=== PATIENT | female | born 1995 | race Caucasian/White ===

== ENCOUNTER → 2016-05-30 | Outpatient (CLI) | payer OTHER ==
--- NOTE | 2016-05-30 10:29 | XR ---
EXAMINATION TYPE: XR ankle complete RT DATE OF EXAM: 05/30/2016 10:23 AM COMPARISON: NONE HISTORY: Pain x2 weeks TECHNIQUE: 3 view right ankle FINDINGS: Ankle mortise is intact. Soft tissues are normal. No acute displaced fractures are evident. IMPRESSION: 1. Normal three-view right ankle
== END | disposition home or self-care (01) ==
LOC: RADXRMAIN 10:07
PROVIDERS: ATTEND Emergency Medicine
DX: S93.401A Sprain of unspecified ligament of right ankle, initial encounter (principal)

== ENCOUNTER → 2016-08-08 | Outpatient (CLI) | payer OTHER ==
--- NOTE | 2016-08-08 14:52 | XR ---
EXAMINATION TYPE: XR hand complete RT DATE OF EXAM ORDERED: 08/08/2016 2:48 PM HISTORY: S60.221A contusion r hand. COMPARISON: None. FINDINGS: No fracture, dislocation or other acute osseous lesion is seen. IMPRESSION: NORMAL RIGHT HAND.
== END ==
LOC: RADXRMAIN 14:28
PROVIDERS: ATTEND Emergency Medicine
DX: S60.221A Contusion of right hand, initial encounter (principal)

== ENCOUNTER → 2016-08-08 | Outpatient (CLI) | payer SELFPAY | END | disposition home or self-care (01) | LOC: LABWHC1 14:14 | PROVIDERS: ATTEND Emergency Medicine | DX: S60.221A Contusion of right hand, initial encounter (principal); N91.2 Amenorrhea, unspecified | CPT/HCPCS: 81025 ==

== ENCOUNTER → 2016-08-16 | Outpatient (CLI) | payer OTHER ==
--- NOTE | 2016-08-16 13:58 | XR ---
EXAMINATION TYPE: XR wrist complete RT, XR hand complete RT DATE OF EXAM: 08/16/2016 1:53 PM CLINICAL HISTORY: Right wrist and hand pain after injury. TECHNIQUE: Frontal, lateral and oblique images of the right wrist and hand are obtained. Fourth scap hoid view right wrist is acquired. COMPARISON: Right hand x-ray August 08, 2016 FINDINGS: There is no acute fracture/dislocation evident in the right wrist. The joint spaces in th e right wrist appear within normal limits. The overlying soft tissue appears unremarkable. Images of right hand show no acute fracture or dislocation. The joint spaces are preserved. The overl cathy soft tissue is unremarkable. IMPRESSION: There is no acute fracture or dislocation in the right hand or wrist.
== END ==
LOC: RADXRMAIN 13:34
PROVIDERS: ATTEND Emergency Medicine
DX: S60.221A Contusion of right hand, initial encounter (principal)

== ENCOUNTER 2016-10-11 14:59 | Emergency (ER) | payer OTHER ==
[2016-10-11 15:17] VITALS: RESP 18
[2016-10-11] MEDS ORDERED: SODIUM CHLORIDE 0.9% 1,000 ML IV STA ×2 (16:57)
[2016-10-11] MEDS ORDERED: ONDANSETRON 4 MG/2 ML VIAL IVP STA (16:57)
[2016-10-11] MEDS ORDERED: FAMOTIDINE 20 MG/2 ML VIAL IV STA (16:59)
--- NOTE | 2016-10-11 17:04 | ED ---
General Adult HPI - General Chief complaint: Nausea/Vomiting/Diarrhea Stated complaint: Vomiting Time Seen by Provider: 10/11/16 16:47 Source: patient, RN notes reviewed, old records reviewed Mode of arrival: ambulatory Limitations: no limitations - History of Present Illness Initial comments: Chief complaint and history of present illness this is a 21-year-old female with nausea vomiting diarrhea for approximately 36 hours. Her friends habits she can think of having eaten any bad food. Denies any fever. Denies any blood in the vomit or diarrhea. She has not had a period for 6 months but she' s had for negative urine tests for . This be checked by serum - Related Data Home Medications Medication Instructions Recorded Confirmed Multivit-Min/Iron/Folic/Xfl998 1 tab PO DAILY 10/11/16 10/11/16 [Hair, Skin and Nails Tablet] Previous Rx's Medication Instructions Recorded Famotidine [Pepcid] 20 mg PO DAILY #30 tablet 10/11/16 Ondansetron Odt [Zofran Odt] 4 mg PO Q8HR PRN #10 tab 10/11/16 Allergies Allergy/AdvReac Type Severity Reaction Status Date / Time diphenhydramine HCl Allergy Anaphylaxis Verified 10/11/16 17:17 [From Benadryl] ibuprofen [From Motrin] Allergy Anaphylaxis Verified 10/11/16 17:17 ketorolac [From Toradol] Allergy Anaphylaxis Verified 10/11/16 17:17 levetiracetam [From Keppra] Allergy Anaphylaxis Verified 10/11/16 17:17 lithium [[place]] Allergy Anaphylaxis Verified 10/11/16 17:17 naproxen [From Naprosyn] Allergy Anaphylaxis Verified 10/11/16 17:17 NSAIDS (Non-Steroidal Allergy Anaphylaxis Verified 10/11/16 17:17 Anti-Inflamma Review of Systems ROS Statement: Those systems with pertinent positive or pertinent negative responses have been documented in the HPI. review of systems no complaint of any headache or visual acuity changes denies chest pain shortness of breath. She's had a set stomach nausea vomiting for 36 hours. No blood in the vomit or loose stool. All systems were reviewed.Past medical processing significant for low blood sugar, fibromyalgia, seizure disorder for which she's not taking any medications has not had a seizure for over 2 years. Also pulmonary stenosis. Surgeries tonsils and adenoids. Family history mother had cancer of the cervix and possible connective tissue disorder. Father had heart disease. Patient has ALLERGIES to diphenhydramine, ketorolac, levetiracetam, lithium, naproxen, nonsteroidal anti-inflammatories. The patient quit smoking 2 years ago drinks alcohol socially. ROS Other: All systems not noted in ROS Statement are negative. Past Medical History Past Medical History: Fibromyalgia, Seizure Disorder Additional Past Medical History / Comment(s): Pulmonary Stenosis History of Any Multi-Drug Resistant Organisms: None Reported Past Surgical History: Tonsillectomy Past Psychological History: Anxiety, Bipolar, Depression Smoking Status: Former smoker Past Alcohol Use History: Occasional Past Drug Use History: None Reported General Exam - General Exam Comments Initial Comments: General: The patient is awake and alert, in no distress, and does not appear acutely ill. complains of nausea vomiting diarrhea for 36 hours. Vital signs shows temperature 98.4 pulse 104 respiratory rate 18 pulse ox 98% room air blood pressure 131/82 Eye: Pupils are equal, round and reactive to light, extra-ocular movements are intact ; there is normal conjunctiva bilaterally. No signs of icterus. , mouth and throat: There are moist mucous membranes and no oral lesions. Neck: The neck is supple, there is no tenderness , no anterior cervical lymphadenopathy, thyroid not enlarged. Cardiovascular: There is a regular rate and rhythm. loud murmur over the mitral valve area. History of pulmonary stenosis Respiratory: Lungs are clear to auscultation, respirations are non-labored, breath sounds are equal. No wheezes, stridor, rales, or rhonchi. Gastrointestinal: Soft, non-distended, non-tender abdomen without masses or organomegaly noted. There is no rebound or guarding present. No CVA tenderness. Bowel sounds are unremarkable. Back: There is no tenderness to palpation in the midline. Musculoskeletal: Normal ROM, no tenderness, There is no pedal edema. There is no calf tenderness or swelling. Sensation intact. Neurological: no neuro deficits, walking talking balance normal. No evidence of any focal or lateralizing problems. Skin: Skin is warm and dry and no rashes or lesions are noted. Limitations: no limitations Course Vital Signs 10/11/16 10/11/16 10/11/16 15:14 17:23 19:34 Temperature 98.4 F Pulse Rate 104 H 93 94 Respiratory 18 18 18 Rate Blood Pressure 131/82 124/82 131/83 O2 Sat by Pulse 98 98 100 Oximetry Medical Decision Making - Medical Decision Making Medical decision-making. Patient's white count 7.0 hemoglobin 14 hematocrit 43 with a potassium 3.9 BUN 9 creatinine 0.65 GFR greater than 60. Glucose 96. Amylase/ lipase within normal limits,serum test negative. patient continued complaining of mild abdominal discomfort which she received Dilaudid. The patient's x-ray of the abdomen was done reviewed by radiologist his impression is the bowel gas pattern is normal. There is no sign of intestinal obstruction or pneumoperitoneum. Fecal pattern is normal. Lung bases are clear. There are no pathologic calcifications over the kidneys. Impression nonacute abdomen. No change. As read by Dr. Ortega The patient be discharged home with prescription for Pepcid and Zofran. Told to use Tylenol for discomfort. Follow-up with family physician off work tomorrow. - Lab Data Result diagrams: 10/11/16 17:22 10/11/16 17:22 Lab Results 10/11/16 10/11/16 Range/Units 17:22 17:22 WBC 7.0 (3.8-10.6) k/uL RBC 5.44 H (3.80-5.40) m/uL Hgb 14.4 (11.4-16.0) gm/dL Hct 43.5 (34.0-46.0) % MCV 79.9 L (80.0-100.0) fL MCH 26.4 (25.0-35.0) pg MCHC 33.0 (31.0-37.0) g/dL RDW 12.8 (11.5-15.5) % Plt Count 323 (150-450) k/uL Neutrophils % 63 % Lymphocytes % 27 % Monocytes % 5 % Eosinophils % 3 % Basophils % 1 % Neutrophils # 4.4 (1.3-7.7) k/uL Lymphocytes # 1.9 (1.0-4.8) k/uL Monocytes # 0.4 (0-1.0) k/uL Eosinophils # 0.2 (0-0.7) k/uL Basophils # 0.1 (0-0.2) k/uL Sodium 143 (137-145) mmol/L Potassium 3.9 (3.5-5.1) mmol/L Chloride 104 (98-107) mmol/L Carbon Dioxide 27 (22-30) mmol/L Anion Gap 12 mmol/L BUN 9 (7-17) mg/dL Creatinine 0.65 (0.52-1.04) mg/dL Est GFR (MDRD) Af Amer >60 (>60 ml/min/1.73 sqM) Est GFR (MDRD) Non-Af >60 (>60 ml/min/1.73 sqM) Glucose 96 (74-99) mg/dL Calcium 10.0 (8.4-10.2) mg/dL Total Bilirubin 0.7 (0.2-1.3) mg/dL AST 32 (14-36) U/L ALT 51 (9-52) U/L Alkaline Phosphatase 95 (38-126) U/L Total Protein 8.4 H (6.3-8.2) g/dL Albumin 4.8 (3.5-5.0) g/dL Amylase 59 (30-110) U/L Lipase 86 (23-300) U/L HCG, Quant <2.4 mIU/mL Disposition Clinical Impression: Gastroenteritis Disposition: HOME SELF-CARE Condition: Fair Instructions: Acute Nausea and Vomiting (ED), Acute Diarrhea (ED) Additional Instructions: use Pepto-Bismol to control loose stool. Pepcid for stomach irritation Zofran for nausea. Advance her diet. Off work today and follow-up with family physician. Prescriptions: Famotidine [Pepcid] 20 mg PO DAILY #30 tablet Ondansetron Odt [Zofran Odt] 4 mg PO Q8HR PRN #10 tab PRN Reason: nausea vomiting Referrals: Artemio Cook MD [Primary Care Provider] - 1-2 days Time of Disposition: 19:48
[2016-10-11 17:34] LABS: Basophils # (A) 0.1 k/uL (0-0.2); Basophils % (A) 1 %; CH 26.5; CHCM 33.4; Eosinophils # (A) 0.2 k/uL (0-0.7); Eosinophils % (A) 3 %; HCT 43.5 % (34.0-46.0); HGB 14.4 gm/dL (11.4-16.0); Luc # (Auto) 0.14; Luc % (Auto) 2; Lymphocytes # (A) 1.9 k/uL (1.0-4.8); Lymphocytes % (A) 27 %; MCH 26.4 pg (25.0-35.0); MCV 79.9 fL (80.0-100.0); Mean Platelet Volume 6.2; Monocytes # (A) 0.4 k/uL (0-1.0); Monocytes % (A) 5 %; Neutrophils # (A) 4.4 k/uL (1.3-7.7); Neutrophils % (A) 63 %; RBC 5.44 m/uL (3.80-5.40); RDW 12.8 % (11.5-15.5); WBC (Perox) 6.65
[2016-10-11 17:49] LABS: ALT 51 U/L (9-52); AST 32 U/L (14-36); Alkaline Phosphatase 95 U/L (38-126); Amylase 59 U/L (30-110); Anion Gap 12 mmol/L; Blood Urea Nitrogen 9 mg/dL (7-17); Carbon Dioxide 27 mmol/L (22-30); Chloride 104 mmol/L (98-107); Glucose 96 mg/dL (74-99); Non-African American GFR(MDRD) >60 (>60 ml/min/1.73 sqM); Potassium 3.9 mmol/L (3.5-5.1); Sodium 143 mmol/L (137-145); Total Bilirubin 0.7 mg/dL (0.2-1.3); Total Protein 8.4 g/dL (6.3-8.2)
[2016-10-11 18:06] LABS: HCG,Quantitative Serum <2.4 mIU/mL
[2016-10-11] MEDS ORDERED: HYDROmorphone 1 MG/ML 1 ML SYRINGE IVP STA (19:17)
--- NOTE | 2016-10-11 19:32 | XR ---
EXAMINATION TYPE: XR KUB DATE OF EXAM: 10/11/2016 COMPARISON: 03/10/2016 HISTORY: Nausea and vomiting TECHNIQUE: 2 views FINDINGS: The bowel gas pattern is normal. There is no sign of intestinal obstruction or pneumoperito neum. Fecal pattern is normal. Lung bases are clear. There are no pathologic calcifications over the kidneys. IMPRESSION: Nonacute abdomen. No change.
[2016-10-11 20:11] VITALS: BP 137/87; PULSE 81; TEMP 97.8
== END 2016-10-11 20:11 | disposition home or self-care (01) ==
LOC: EC 14:59
DX: K52.9 Noninfective gastroenteritis and colitis, unspecified (principal); Z87.891 Personal history of nicotine dependence; Z79.899 Other long term (current) drug therapy; Z88.6 Allergy status to analgesic agent; Z88.8 Allergy status to other drugs, medicaments and biological substances
CPT/HCPCS: 36415; 80053; 82150; 83690; 85025; 84702; 74000; 99284; 96374; 96375 ×2; 96361 ×2; J2405; J1170

== ENCOUNTER → 2017-06-28 | Outpatient (CLI) | payer OTHER ==
[2017-06-28 11:58] LABS: HGB 13.9 gm/dL (11.4-16.0); MCHC 32.3 g/dL (31.0-37.0); MCV 80.5 fL (80.0-100.0); Mean Platelet Volume 6.3; Platelet Count 348 k/uL (150-450); RBC 5.34 m/uL (3.80-5.40); RDW 12.4 % (11.5-15.5); WBC 7.9 k/uL (3.8-10.6)
[2017-06-28 12:14] LABS: ALT 64 U/L (9-52); AST 42 U/L (14-36); Albumin 4.9 g/dL (3.5-5.0); Alkaline Phosphatase 98 U/L (38-126); Anion Gap 16 mmol/L; Blood Urea Nitrogen 15 mg/dL (7-17); Calcium 10.3 mg/dL (8.4-10.2); Carbon Dioxide 25 mmol/L (22-30); Chloride 104 mmol/L (98-107); Glucose 94 mg/dL (74-99); Potassium 4.2 mmol/L (3.5-5.1); Sodium 145 mmol/L (137-145); Total Bilirubin 0.7 mg/dL (0.2-1.3); Total Protein 8.4 g/dL (6.3-8.2)
[2017-06-28 12:30] LABS: HCG,Quantitative Serum <2.4 mIU/mL; T4, Free (Free Thyroxine) 1.21 ng/dL (0.78-2.19)
[2017-06-28 12:51] LABS: Amorphous Sediment,Urine Rare /hpf; Appearance,Urine Turbid (Clear); Bacteria,Urine Rare /hpf; Bilirubin,Urine Negative (Negative); Blood,Urine Negative (Negative); Color,Urine Yellow; Glucose,Urine (UA) Negative (Negative); Ketones,Urine Negative (Negative); Leukocyte Esterase,Urine Small (Negative); Mucus,Urine Moderate /hpf; Nitrite,Urine Negative (Negative); PH, Urine 5.5 (5.0-8.0); Protein,Urine 1+ (Negative); Specific Gravity,Urine 1.024 (1.001-1.035); Squamous Epithelial Cell,Urine 7 /hpf (0-4); Urobilinogen,Urine <2.0 mg/dL (<2.0); WBC,Urine 23 /hpf (0-5)
[2017-06-28 17:46] LABS: DHEA Sulfate 197.5 ug/dL (26.0-430.0)
[2017-06-28 18:30] LABS: Insulin Level 28.8 mIU/mL (3.0-25.0)
== END | disposition home or self-care (01) ==
LOC: LABWHC1 11:24
PROVIDERS: ATTEND Obstetrics & Gynecology
DX: N91.2 Amenorrhea, unspecified (principal)
CPT/HCPCS: 36415; 80053; 81001; 82627; 82670; 83001; 83002; 83498; 83525; 84146; 84402; 84439; 84443; 84702; 85027

== ENCOUNTER → 2017-07-06 | Outpatient (CLI) | payer OTHER ==
--- NOTE | 2017-07-07 10:59 | US ---
EXAMINATION TYPE: US pelvis complete transvag DATE OF EXAM: 07/06/2017 COMPARISON: 2016 CLINICAL HISTORY: N91.2 Amenorrhea. Large body habitus TECHNIQUE: . Transabdominal sonographic images of the pelvis were acquired. Transvaginal sonographi c images were medically necessary to better assess the following anatomy: uterus, endometrium, ovarie s Date of LMP: 1 year ago EXAM MEASUREMENTS: Uterus: 5.2 x 2.0 x 3.0 cm cm Endometrial Stripe: 0.7 cm Right Ovary: 3.2 x 2.1 x 2.1 cm Left Ovary: 3.1 x 1.9 x 2.4 cm 1. Uterus: Anteverted heterogenous cervical cyst 0.7 x 0.4 x0.5 nabothian cysts likely present. 2. Endometrium: thick , 3. Right Ovary: multiple small cysts , some of these appear to be within the periphery which could suggest Polycystic ovaries 4. Left Ovary: multiple small cysts 5. Bilateral Adnexa: wnl 6. Posterior cul-de-sac: wnl IMPRESSION: 1. Clinical consideration for polycystic ovarian disease is recommended.
== END | disposition home or self-care (01) ==
LOC: RADUSWWP 15:27
PROVIDERS: ATTEND Obstetrics & Gynecology
DX: N91.2 Amenorrhea, unspecified (principal)
CPT/HCPCS: 76830; 76856

== ENCOUNTER 2018-05-20 03:58 | Emergency (ER) | payer OTHER ==
--- NOTE | 2018-05-20 05:01 | XR ---
EXAMINATION TYPE: XR knee complete RT DATE OF EXAM: 05/20/2018 COMPARISON: NONE HISTORY: Knee pain TECHNIQUE: 3 views FINDINGS: I see no fracture nor dislocation. Joint spaces are fairly normal. There is no sign of join t effusion. IMPRESSION: Negative right knee exam.
--- NOTE | 2018-05-20 05:06 | ED ---
Fall HPI - General Chief Complaint: Fall Stated Complaint: Fall/Knee Injury Time Seen by Provider: 05/20/18 04:10 Source: patient Mode of arrival: wheelchair - History of Present Illness Initial Comments: Patient is 23-year-old woman who slipped on a packet that was on the floor and fell striking her knee. This occurred earlier tonight. Patient states that she is now not able to ambulate due to the pain. She denies weakness or numbness of the leg. She denies other injuries in the fall. Complaint: fall Onset/Timin -: hour(s) Fall From: standing When Fall Occurred: just prior to arrival Place Fall Occurred: work Loss of Consciousness: none Prolonged Down Time?: no Severity: severe Quality: sharp Context: tripped/slipped Associated Symptoms: denies - Related Data Home Medications Medication Instructions Recorded Confirmed Multivit-Min/Iron/Folic/Qkc268 1 tab PO DAILY 10/11/16 10/11/16 [Hair, Skin and Nails Tablet] Previous Rx's Medication Instructions Recorded Famotidine [Pepcid] 20 mg PO DAILY #30 tablet 10/11/16 Ondansetron Odt [Zofran Odt] 4 mg PO Q8HR PRN #10 tab 10/11/16 Allergies Allergy/AdvReac Type Severity Reaction Status Date / Time diphenhydramine HCl Allergy Anaphylaxis Verified 05/20/18 04:09 [From Benadryl] ibuprofen [From Motrin] Allergy Anaphylaxis Verified 05/20/18 04:09 ketorolac [From Toradol] Allergy Anaphylaxis Verified 05/20/18 04:09 levetiracetam [From Keppra] Allergy Anaphylaxis Verified 05/20/18 04:09 lithium [[place]] Allergy Anaphylaxis Verified 05/20/18 04:09 naproxen [From Naprosyn] Allergy Anaphylaxis Verified 05/20/18 04:09 NSAIDS (Non-Steroidal Allergy Anaphylaxis Verified 05/20/18 04:09 Anti-Inflamma Review of Systems ROS Statement: Those systems with pertinent positive or pertinent negative responses have been documented in the HPI. ROS Other: All systems not noted in ROS Statement are negative. Cardiovascular: Denies: chest pain, syncope Gastrointestinal: Denies: abdominal pain Musculoskeletal: Denies: back pain Neurological: Denies: headache Past Medical History Past Medical History: Fibromyalgia, Seizure Disorder Additional Past Medical History / Comment(s): Pulmonary Stenosis History of Any Multi-Drug Resistant Organisms: None Reported Past Surgical History: Adenoidectomy, Tonsillectomy Past Psychological History: Anxiety, Bipolar, Depression Smoking Status: Current every day smoker Past Alcohol Use History: Occasional Past Drug Use History: None Reported General Exam Limitations: physical limitation General appearance: alert, in no apparent distress Head exam: Present: atraumatic, normocephalic Eye exam: Present: normal appearance Neck exam: Present: normal inspection, full ROM. Absent: tenderness Respiratory exam: Present: normal lung sounds bilaterally. Absent: respiratory distress, wheezes, rales, rhonchi, stridor Cardiovascular Exam: Present: regular rate, normal rhythm, normal heart sounds Extremities exam: Present: normal capillary refill, other (Patient has marked tenderness to the anterior aspect of the knee. She is not able to tolerate the range of motion exam or ligamentous exam due to pain at the knee. There is no obvious deformity. There is a small amount of soft tissue swelling anteriorly.) . Absent: pedal edema Back exam: Present: normal inspection. Absent: CVA tenderness (R), CVA tenderness (L), paraspinal tenderness, vertebral tenderness Neurological exam: Present: alert. Absent: motor sensory deficit Skin exam: Present: warm, dry, intact, normal color. Absent: rash Course Vital Signs 05/20/18 05/20/18 04:05 06:21 Temperature 98.0 F 98.2 F Pulse Rate 79 82 Respiratory 17 18 Rate Blood Pressure 130/84 118/87 O2 Sat by Pulse 97 100 Oximetry Disposition Clinical Impression: Fall, Contusion, knee Disposition: HOME SELF-CARE Condition: Good Instructions: Knee Pain (ED) Is patient prescribed a controlled substance at d/c from ED?: No Referrals: Artemio Cook MD [Primary Care Provider] - 1-2 days
[2018-05-20 06:22] VITALS: BP 118/87; PULSE 82; RESP 18; TEMP 98.2
== END 2018-05-20 06:22 | disposition home or self-care (01) ==
LOC: EC 03:58
DX: S80.01XA Contusion of right knee, initial encounter (principal); F17.200 Nicotine dependence, unspecified, uncomplicated; Z88.8 Allergy status to other drugs, medicaments and biological substances; Z88.6 Allergy status to analgesic agent; W01.10XA Fall on same level from slipping, tripping and stumbling with subsequent striking against unspecified object, initial encounter; Y92.69 Other specified industrial and construction area as the place of occurrence of the external cause; Y99.0 Civilian activity done for income or pay
CPT/HCPCS: 99283

== ENCOUNTER 2018-09-03 14:19 | Emergency (ER) | payer OTHER ==
[2018-09-03 14:33] VITALS: RESP 18; TEMP 98.2
--- NOTE | 2018-09-03 15:09 | ED ---
General Adult HPI - General Chief complaint: Neuro Symptoms/Deficit Stated complaint: BLE pain Time Seen by Provider: 09/03/18 14:25 Source: patient Mode of arrival: ambulatory Limitations: no limitations - History of Present Illness Initial comments: Patient is a 23-year-old female presenting to the emergency department with a chief complaint of numbness and muscle weakness bilateral lower extremities. Patient reports she is diagnosed with a neuropathy and is treated with gabapentin. Patient states she gets similar episodes but only last up to 30 minutes. She began having numbness and muscle weakness today which has been ongoing for 3 hours. She states that she feels pain on her left leg but not her right. She also complains of left calf pain. She also has mild lower back pain without radiation to the lower extremities and bilateral hip pain. Patient denies any urinary incontinence or saddle paresthesia. - Related Data Home Medications Medication Instructions Recorded Confirmed Gabapentin [Neurontin] 100 mg PO TID 09/03/18 09/03/18 Lacosamide [Vimpat] 100 mg PO BID 09/03/18 09/03/18 Allergies Allergy/AdvReac Type Severity Reaction Status Date / Time diphenhydramine HCl Allergy Anaphylaxis Verified 09/03/18 14:36 [From Benadryl] ibuprofen [From Motrin] Allergy Anaphylaxis Verified 09/03/18 14:36 ketorolac [From Toradol] Allergy Anaphylaxis Verified 09/03/18 14:36 levetiracetam [From Keppra] Allergy Anaphylaxis Verified 09/03/18 14:36 lithium [[place]] Allergy Anaphylaxis Verified 09/03/18 14:36 naproxen [From Naprosyn] Allergy Anaphylaxis Verified 09/03/18 14:36 NSAIDS (Non-Steroidal Allergy Anaphylaxis Verified 09/03/18 14:36 Anti-Inflamma Review of Systems ROS Statement: Those systems with pertinent positive or pertinent negative responses have been documented in the HPI. ROS Other: All systems not noted in ROS Statement are negative. Past Medical History Past Medical History: Fibromyalgia, Seizure Disorder Additional Past Medical History / Comment(s): Pulmonary Stenosis History of Any Multi-Drug Resistant Organisms: None Reported Past Surgical History: Adenoidectomy, Tonsillectomy Past Psychological History: Anxiety, Bipolar, Depression Smoking Status: Never smoker Past Alcohol Use History: Rare Past Drug Use History: None Reported General Exam Limitations: no limitations General appearance: alert, in no apparent distress Head exam: Present: atraumatic Eye exam: Present: normal appearance Respiratory exam: Present: normal lung sounds bilaterally. Absent: respiratory distress, wheezes, rales, rhonchi, stridor Cardiovascular Exam: Present: regular rate. Absent: bradycardia, tachycardia Back exam: Present: tenderness (Mild). Absent: CVA tenderness (R), CVA tenderness (L) Neurological exam: Present: alert, oriented X3, reflexes normal (+ 2 bilateral knees). Absent: normal gait (Able to stand up with heavy assistance for a few seconds) Psychiatric exam: Present: normal affect, normal mood Course Vital Signs 09/03/18 14:25 Temperature 98.2 F Pulse Rate 95 Respiratory 18 Rate Blood Pressure 144/101 O2 Sat by Pulse 99 Oximetry Medical Decision Making - Medical Decision Making Patient is 23-year-old female presenting to the emergency department for bilateral lower extremity muscle weakness and numbness. CMP and CBC were drawn and returned unremarkable. Patient will transferred to [facility] neurology, except an physician Dr. Jay. Case discussed with physician. - Lab Data Result diagrams: 09/03/18 17:03 09/03/18 17:03 Lab Results 09/03/18 09/03/18 Range/Units 17:03 17:03 WBC 10.0 (3.8-10.6) k/uL RBC 5.08 (3.80-5.40) m/uL Hgb 13.5 (11.4-16.0) gm/dL Hct 40.6 (34.0-46.0) % MCV 80.0 (80.0-100.0) fL MCH 26.5 (25.0-35.0) pg MCHC 33.2 (31.0-37.0) g/dL RDW 13.3 (11.5-15.5) % Plt Count 344 (150-450) k/uL Neutrophils % 66 % Lymphocytes % 25 % Monocytes % 4 % Eosinophils % 3 % Basophils % 1 % Neutrophils # 6.6 (1.3-7.7) k/uL Lymphocytes # 2.5 (1.0-4.8) k/uL Monocytes # 0.4 (0-1.0) k/uL Eosinophils # 0.3 (0-0.7) k/uL Basophils # 0.1 (0-0.2) k/uL Sodium 140 (137-145) mmol/L Potassium 4.3 (3.5-5.1) mmol/L Chloride 106 (98-107) mmol/L Carbon Dioxide 23 (22-30) mmol/L Anion Gap 11 mmol/L BUN 9 (7-17) mg/dL Creatinine 0.46 L (0.52-1.04) mg/dL Est GFR (CKD-EPI)AfAm >90 (>60 ml/min/1.73 sqM) Est GFR (CKD-EPI)NonAf >90 (>60 ml/min/1.73 sqM) Glucose 120 H (74-99) mg/dL Calcium 10.2 (8.4-10.2) mg/dL Total Bilirubin 0.4 (0.2-1.3) mg/dL AST 45 H (14-36) U/L ALT 73 H (9-52) U/L Alkaline Phosphatase 86 (38-126) U/L Total Protein 7.9 (6.3-8.2) g/dL Albumin 4.8 (3.5-5.0) g/dL Disposition Clinical Impression: Neuropathy Disposition: OTHER INSTITUTION NOT DEFINED Condition: Stable Referrals: Artemio Cook MD [Primary Care Provider] - 1-2 days Time of Disposition: 17:49 - Out of Hospital Transfer - Req. Specs Out of Hospital Transfer - Requested Specifics: Other Emergency Center ([facility])
[2018-09-03 17:11] LABS: Basophils # (A) 0.1 k/uL (0-0.2); Basophils % (A) 1 %; Eosinophils # (A) 0.3 k/uL (0-0.7); Eosinophils % (A) 3 %; HCT 40.6 % (34.0-46.0); HGB 13.5 gm/dL (11.4-16.0); Lymphocytes # (A) 2.5 k/uL (1.0-4.8); Lymphocytes % (A) 25 %; MCH 26.5 pg (25.0-35.0); MCHC 33.2 g/dL (31.0-37.0); Mean Platelet Volume 6.4; Monocytes # (A) 0.4 k/uL (0-1.0); Monocytes % (A) 4 %; Neutrophils # (A) 6.6 k/uL (1.3-7.7); Neutrophils % (A) 66 %; Platelet Count 344 k/uL (150-450); RBC 5.08 m/uL (3.80-5.40); RDW 13.3 % (11.5-15.5)
[2018-09-03 17:19] LABS: ALT 73 U/L (9-52); AST 45 U/L (14-36); Albumin 4.8 g/dL (3.5-5.0); Alkaline Phosphatase 86 U/L (38-126); Anion Gap 11 mmol/L; Blood Urea Nitrogen 9 mg/dL (7-17); Calcium 10.2 mg/dL (8.4-10.2); Carbon Dioxide 23 mmol/L (22-30); Chloride 106 mmol/L (98-107); Glucose 120 mg/dL (74-99); Potassium 4.3 mmol/L (3.5-5.1); Sodium 140 mmol/L (137-145); Total Bilirubin 0.4 mg/dL (0.2-1.3); Total Protein 7.9 g/dL (6.3-8.2)
[2018-09-03 18:34] VITALS: BP 138/90; PULSE 73
== END 2018-09-03 18:50 | disposition other institution (70) ==
LOC: EC 14:19
DX: G62.9 Polyneuropathy, unspecified (principal); G40.909 Epilepsy, unspecified, not intractable, without status epilepticus; Z79.899 Other long term (current) drug therapy; Z88.8 Allergy status to other drugs, medicaments and biological substances; Z88.5 Allergy status to narcotic agent; Z88.6 Allergy status to analgesic agent
CPT/HCPCS: 36415; 80053; 85025; 99285

== ENCOUNTER → 2018-10-23 | Outpatient (CLI) | payer OTHER ==
--- NOTE | 2018-10-23 22:43 | CONS ---
CONSULTATION REASON FOR CONSULTATION: Consultation note for hypersomnia. This is a 23-year-old female patient coming in for oversleeping. She sleeps an extended number of hours, around 10-12 hours and despite that she feels non refreshed, tired, sleepy and fatigued. This has been going on for a period of a few years and recently this got worse after the patient was given a combination of and Neurontin for seizure disorder. Currently she is off the medication. She is also seeing Dr. Navas for possible MS. Diagnosis has not been finally established yet. She is excessively fatigued and sleepy. She goes to bed somewhere between 8 or 11 p.m. gets up at 8:00 am in the morning. She feels tired and sleepy during the day. She may take a nap around 1:00 pm. 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 and 8:00 am and she works 2 days a week. Her weight has been fluctuating. In general, she has seems to have gained weight. She used to weigh around 310 pounds last year. She is down to 228. Her current [place] score is at 16. No head trauma. No hallucinations. No cataplexy. Although, she has experienced some sleep paralysis in the past. No family history of sleep apnea. No family history of narcolepsy. The patient sleeps in different body positions. She prefers sleeping on her back and stomach. She does not drink alcohol in excess. She has no vivid dreams. She wakes up multiple times in the middle of night somewhere between 6-10 times and she has loud snoring. She is an ex-smoker. No history of substance abuse. No history of depression. PAST MEDICAL HISTORY: 1. Obesity. 2. Possible seizure disorder versus MS. PAST SURGICAL HISTORY: Includes tonsils and adenoid removal. ALLERGIES: TO NAPROSYN, BENADRYL, KEPPRA, MOTRIN AND KEFLEX. SOCIAL HISTORY: The patient is an ex smoker. No history of alcohol. She has smoked marijuana on and off. FAMILY HISTORY: Not known as the patient is adopted. MEDICATIONS: Are none. REVIEW OF SYSTEMS: A 14-point review of system was done. Positive findings are mentioned in history of present illness. No grinding of the teeth. No typical symptoms of RLS although she has some symptoms of neuropathy in lower extremities bilaterally. She wakes up with dry mouth. She denies having any grinding. No sleepwalking. No palpitation. No heartburn. No chest pain. No anxiety. No history of depression. BP is 123/84, pulse 101, respirations 16, temperature 98.1, BMI is 41, weight is 228. Height is 5 feet 2 inches. Neck size 16.5 inches, saturation 94% on room air. GENERAL APPEARANCE: Calm, comfortable. Head is atraumatic, normocephalic. NECK: Supple. No JVD. No goiter or neck masses. Mallampati class IV. LUNGS: Clear to auscultation. HEART: Sounds are regular rate and rhythm. Normal S1, S2. No S3. No murmurs. ABDOMEN: Obese, soft. Organs cannot be palpated. There was no direct and rebound tenderness, rebound or guarding. EXTREMITIES: Trace edema. No cyanosis or clubbing. NEUROLOGIC: She is alert and oriented x3. No focal neurological deficit. PSYCHIATRIC: Negative for anxiety or depression. Skin is negative for any wounds or ulceration. IMPRESSION: 1. Hypersomnia [place] score of 16 under investigation, rule out obstructive sleep apnea. This clinical suspicion is high. Narcolepsy is felt to be less likely. 2. Obesity, BMI of 41. 3. Loud snoring. PLAN: 1. Polysomnogram. Possible MSLT on 2nd day if the polysomnogram comes back negative for sleep apnea. 2. Encourage weight loss. 3. Implement good sleep hygiene measures. 4. We will continue to follow. MMODL / IJN: [id number] /
== END ==
LOC: SLEEP 15:23
PROVIDERS: ATTEND Internal Medicine Critical Care Medicine
DX: G47.10 Hypersomnia, unspecified (principal); E66.9 Obesity, unspecified; Z68.41 Body mass index [BMI] 40.0-44.9, adult
CPT/HCPCS: 99211

== ENCOUNTER → 2019-01-22 | Outpatient (CLI) | payer OTHER ==
--- NOTE | 2019-01-22 16:51 | PN ---
PROGRESS NOTE This is a 24-year-old female patient coming in to discuss results of her sleep study. This 24-year-old obese female patient has a diagnosis of MS and she originally came to me for excessive tiredness and fatigue. The patient has an [place] score of 16. She weighs around 310 pounds and she is currently losing weight. I performed a polysomnogram on this patient. The polysomnography showed mild obstructive sleep apnea. The patient's symptoms of hypersomnia were out of proportion to the severity of her KEVIN. Her AHI was 9.2, and it was worse during REM sleep. The patient showed increased sleep efficiency at 96%. She had a very short sleep latency and she had over- representation of delta wave sleep. No limb movements. No desaturations were encountered. A second-day MSLT was done and it was nondiagnostic for narcolepsy. The patient's overall mean sleep latency was 6.5 minutes, and she had no REM-onset sleep. On today's evaluation she is having the same symptoms. She sleeps longer and she gets more refreshed. For example, yesterday she slept around 12 hours and her current [place] score is 6 and she feels more refreshed on today's evaluation. She CPAP therapy as a start. She is not much interested in stimulation therapy. She claims that she had a history of ADHD at a younger age and she was treated with Adderall in the past. REVIEW OF SYSTEMS: Fourteen-point review of systems was done. Positive findings were all mentioned above in the history of present illness. She is obese and she is losing weight. She snores. No headaches or altered mentation. She has chronic fatigue and tiredness during the day. No chest pain. No shortness of breath. No cough or sputum production. No dysuria, frequency or urgency. No falls. No wounds or ulceration. PHYSICAL EXAMINATION: VITAL SIGNS: BP is 123/76, pulse 71, respirations 18, temperature 98.0. Height is 5 feet 2 inches, BMI of 40.3, weight 224, saturation 96% on room air. GENERAL APPEARANCE: Calm, comfortable. HEAD: Atraumatic, normocephalic. NECK: Short, supple. Mallampati class IV. There is no goiter or neck mass. LUNGS: Clear to auscultation. HEART: Heart sounds are regular rate and rhythm. Normal S1, S2. No S3, S4. No murmurs. ABDOMEN: Soft, nontender. No organomegaly. No direct tenderness, rebound tenderness or guarding. EXTREMITIES: No edema. No cyanosis or clubbing. NEUROLOGIC: She is alert and oriented x3. No focal neurological deficit. IMPRESSION: 1. Chronic hypersomnia; [place] score of 16; under investigation. 2. Mild obstructive sleep apnea. The patient has an AHI of 9, worse during REM sleep. I feel that her hypersomnia is out of proportion to the severity of her obstructive sleep apnea. 3. No indication of narcolepsy. The patient has a short sleep latency of 6.5 minutes. No REM-onset sleep on her MSLT. 4. Morbid obesity with a body mass index of 40.3; currently losing weight. PLAN: 1. I discussed the findings with the patient. 2. I told her her hypersomnia is out of proportion to the severity of obstructive sleep apnea. It is possible that the patient has a combination of factors, including obstructive sleep apnea. She may be a long sleeper, and at same time she may have MS contributing to her chronic tiredness and sleepiness. Based on all this, we decided to give her a trial of CPAP therapy. The patient will come to the sleep center to undergo CPAP titration. Based on that we will decide if CPAP therapy would be something that she would like to use in the future, especially if she gets adequate clinical response. We may consider stimulation with Provigil if response to CPAP therapy is suboptimal. Will continue to follow. MMODL / IJN: [id number] /
== END | disposition home or self-care (01) ==
LOC: SLEEP 13:18
PROVIDERS: ATTEND Internal Medicine Critical Care Medicine
DX: G47.33 Obstructive sleep apnea (adult) (pediatric) (principal); R53.83 Other fatigue; E66.01 Morbid (severe) obesity due to excess calories; Z68.41 Body mass index [BMI] 40.0-44.9, adult; G35 Multiple sclerosis; Z86.59 Personal history of other mental and behavioral disorders; Z99.89 Dependence on other enabling machines and devices

== ENCOUNTER → 2019-06-18 | Outpatient (CLI) | payer OTHER ==
--- NOTE | 2019-06-18 22:51 | PN ---
PROGRESS NOTE DATE OF SERVICE: 06/18/2019 This is a very pleasant 24-year-old female patient who follows with Dr. Cook as her primary care provider. She has a history of obesity. She also has a history of mild obstructive sleep apnea with an AHI of 9, worse during REM sleep. She was seen and evaluated by Dr. Roa and was recommended a trial of CPAP therapy. She was fitted with a CPAP at 8 cm water with a C-Flex of 3 utilizing a medium-sized AirFit N20 nose mask. She was recommended good sleep hygiene measures. She is seen today in followup. She is doing very well. She is sleeping throughout the night without any issues. She feels awake and alert throughout the day. She is feeling quite a bit better post treatment. She is utilizing the device 24/ days. She was off for a few days due to the flu. She is using it 7.8 hours on average. The leak is 22 L/minutes. AHI is down to 0.5 with a total AI 0.3 and no central AI's. She has no complaints and is happy with her progress. PHYSICAL EXAM: This is a very pleasant 24-year-old female patient in no acute distress. Maintains O2 saturations in the 90s on room air. Vital signs revealed blood pressure 126/78, heart rate 84, respirations 18, temperature 97.5. She is 224 pounds. Her [place] Sleepiness Scale score is 2. Her head is normocephalic. Sclerae anicteric. There is some crowding in the posterior pharynx. Neck is short, supple. Trachea midline. Lungs are clear anterior and posteriorly. Heart is regular S1 and S2. Abdomen is soft, nontender. Bowel sounds are present. There is no significant peripheral edema. No clubbing. No cyanosis. Peripheral pulses are intact. IMPRESSION: 1. Symptomatic obstructive sleep apnea with an AHI of 9.2, and had undergone successful CPAP titration with an improved AHI score down to 0.5. 2. Chronic hypersomnia with initial [place] score of 16 tolerating CPAP therapy with an improved score of 2. 3. Obesity with a BMI of 40. PLAN: The patient's case was reviewed and discussed with Dr. Roa. We will continue with the current treatment plan for now. She has tolerated it very well. She is pleased with her sleep hygiene. She is attempting to lose weight. We will see her back in 1 year's time or sooner with any questions or concerns. I, the cosigning physician, performed a history and physical examination on the patient. Lungs are clear. Maintaining good O2 saturations in the in the 90's on room air. I discussed the assessment and plan of care with my nurse practitioner, Lanie Sharif. I attest to the above note as dictated by her. MMODL / IJN: [id number] /
== END | disposition home or self-care (01) ==
LOC: SLEEP 16:21
PROVIDERS: ATTEND Internal Medicine Critical Care Medicine
DX: G47.33 Obstructive sleep apnea (adult) (pediatric) (principal); E66.9 Obesity, unspecified; Z68.41 Body mass index [BMI] 40.0-44.9, adult; Z99.89 Dependence on other enabling machines and devices

== ENCOUNTER 2019-09-24 13:37 | Emergency (ER) | payer OTHER ==
[2019-09-24 13:46] VITALS: BP 143/88; RESP 18; TEMP 97.8
[2019-09-24] MEDS ORDERED: methylPREDNISolone SOD SUCCI 125 MG/2 ML VIAL IM ONE (14:08)
[2019-09-24] MEDS ORDERED: FAMOTIDINE 20 MG TAB PO STA (14:08)
--- NOTE | 2019-09-24 14:15 | ED ---
Allergic Reaction HPI - General Chief complaint: Allergic Reaction Stated complaint: allergic reaction Time Seen by Provider: 09/24/19 13:50 Source: patient, RN notes reviewed, old records reviewed Mode of arrival: ambulatory Limitations: no limitations - History of Present Illness Initial Comments: Patient is a 24-year-old female presents emergency room today stating that she has lower lip swelling. Patient reports that she ate a lobster approximately 30 minutes ago and then subsequently developed lower lip swelling. She does have a lip ring that specimen lower lip for many years. Patient states she has no difficulty breathing. No difficulty in swallowing. Denies any other localized hives. She denies any known history of ALLERGIES to seafood. She reports that she also is 7 weeks . - Related Data Previous Rx's Medication Instructions Recorded Famotidine [Pepcid] 20 mg PO BID #10 tablet 09/24/19 Loratadine [Claritin] 10 mg PO DAILY #7 tab 09/24/19 Allergies Allergy/AdvReac Type Severity Reaction Status Date / Time diphenhydramine HCl Allergy Anaphylaxis Verified 09/24/19 13:47 [From Benadryl] ibuprofen [From Motrin] Allergy Anaphylaxis Verified 09/24/19 13:47 ketorolac [From Toradol] Allergy Anaphylaxis Verified 09/24/19 13:47 levetiracetam [From Keppra] Allergy Anaphylaxis Verified 09/24/19 13:47 lithium [[place]] Allergy Anaphylaxis Verified 09/24/19 13:47 naproxen [From Naprosyn] Allergy Anaphylaxis Verified 09/24/19 13:47 NSAIDS (Non-Steroidal Allergy Anaphylaxis Verified 09/24/19 13:47 Anti-Inflamma shellfish derived [Shellfish] Allergy Swelling Verified 09/24/19 14:21 Review of Systems ROS Statement: Those systems with pertinent positive or pertinent negative responses have been documented in the HPI. ROS Other: All systems not noted in ROS Statement are negative. Past Medical History Past Medical History: Fibromyalgia, Seizure Disorder Additional Past Medical History / Comment(s): Pulmonary Stenosis History of Any Multi-Drug Resistant Organisms: None Reported Past Surgical History: Adenoidectomy, Tonsillectomy Past Psychological History: Anxiety, Bipolar, Depression Smoking Status: Never smoker Past Alcohol Use History: Rare Past Drug Use History: None Reported General Exam - General Exam Comments Initial Comments: Pleasant 24-year-old [employer]. No significant distress. General: Well appearing, well nourished, in no distress. Oriented x 3, normal mood and affect . Ambulating without difficulty. Skin: Good turgor, no rash, unusual bruising or prominent lesions Hair: Normal texture and distribution. HEENT: Head: Normocephalic, atraumatic, no visible or palpable masses, depressions, or scaring. Eyes: Visual acuity intact, conjunctiva clear, sclera non-icteric, EOM intact, PERRL. Ears: EACs clear, TMs translucent & cone of light visualized. hearing intact. Nose: No external lesions, mucosa non-inflamed, septum and turbinates normal Mouth: Mucous membranes moist, no mucosal lesions. Patient does have a swollen lower lip. Evidence of lower lip ring in the middle. No sign of infection including drainage. She reports the lip swelling is somewhat diminishing at this time. Pharynx: Mucosa non-inflamed, no tonsillar hypertrophy or exudate Neck: Supple, without lesions, bruits, or adenopathy, thyroid non-enlarged and non-tender Heart: No cardiomegaly or thrills; regular rate and rhythm, no murmur or gallop Lungs: Clear to auscultation and percussion Abdomen: Bowel sounds normal, no tenderness, organomegaly, masses, or hernia Back: Spine normal without deformity or tenderness, no CVA tenderness Extremities: No amputations or deformities, cyanosis, edema or varicosities, peripheral pulses intact Musculoskeletal: Normal gait and station. No misalignment, asymmetry, crepitation, defects, tenderness, masses, effusions, decreased range of motion, instability, atrophy or abnormal strength or tone in the head, neck, spine, ribs, pelvis or extremities. Limitations: no limitations Course Vital Signs 09/24/19 09/24/19 13:39 14:32 Temperature 97.8 F Pulse Rate 95 98 Respiratory 18 18 Rate Blood Pressure 143/88 O2 Sat by Pulse 97 99 Oximetry Medical Decision Making - Medical Decision Making Alert and oriented 24-year-old female, 7 weeks . She presents today for lower lip swelling after eating lobster 30 minutes ago. She is have intact lip ring. No drainage or concern for infection at this time. His most likely related to an ALLERGIC reaction. She reports the swelling is going on at this time. She is in no distress. Lungs are clear to auscultation. With Patient being discussed no dosing of steroid. She also is ALLERGIC to Benadryl so Patient can take Pepcid and Claritin for the ALLERGIC reaction. Discussed avoiding any seafood and follow-up with her PCP. Patient was monitored does report continued decrease swelling. Discussed return parameters. Disposition Clinical Impression: Allergic reaction, Lip swelling Disposition: HOME SELF-CARE Condition: Good Instructions (If sedation given, give patient instructions): Food Allergy (ED) Additional Instructions: Advised to avoid any seafood such as lobster or shrimp, this is not good to eat for fear of worsening allergic reaction next time as well as not good to eat during . Take pepcid and short steroid course. Follow up with PCP. Prescriptions: Loratadine [Claritin] 10 mg PO DAILY #7 tab Famotidine [Pepcid] 20 mg PO BID #10 tablet Is patient prescribed a controlled substance at d/c from ED?: No Referrals: Artemio Cook MD [Primary Care Provider] - 1-2 days Time of Disposition: 14:14
[2019-09-24 14:38] VITALS: PULSE 98
== END 2019-09-24 14:32 | disposition home or self-care (01) ==
LOC: EC 13:37
DX: O9A.211 Injury, poisoning and certain other consequences of external causes complicating pregnancy, first trimester (principal); R22.0 Localized swelling, mass and lump, head; Z88.8 Allergy status to other drugs, medicaments and biological substances; Z88.6 Allergy status to analgesic agent; Z88.5 Allergy status to narcotic agent; Z91.013 Allergy to seafood; Z91.048 Other nonmedicinal substance allergy status; Z3A.01 Less than 8 weeks gestation of pregnancy
CPT/HCPCS: 99285

== ENCOUNTER → 2019-10-04 | Outpatient (CLI) | payer OTHER ==
--- NOTE | 2019-10-04 17:38 | US ---
EXAMINATION TYPE: Transabdominal DATE OF EXAM: 10/04/2019 5:00 PM COMPARISON: NONE CLINICAL HISTORY: CONFIRM DATES Z36. EXAM PERFORMED: Transvaginal (TV) and Transabdominal (TA) EXAM MEASUREMENTS: GESTATIONAL AGE / DATING Physician Established: Not yet established Dates by LMP: (9 weeks/3 days) EDC: 05/05/20 Dates by First Scan: No previous this is first scan Dates by Current Scan for: Unable to date by today's study MATERNAL ANATOMY Uterus: 6.5 x 2.9 x 3.3cm Right Ovary: 2.6 x 1.4 x 1.8cm Left Ovary: obscured by overlying bowel gas Post CDS / Adnexa: wnl Presence of free fluid: no GESTATION / SURVEY IUP: No IUP seen at this time Endometrium thickened at 1.1cm, somewhat heterogeneous. Date of LMP: 07/30/19 Beta HcG (if available): Not available at this time IMPRESSION: Endometrium is thickened, which can be seen as a decidual reaction of early how ever no intrauterine gestational sac is seen nor pole, discordant with the stated menstrual age . Correlate with serum beta hCG as possibilities remain for early , spontaneous and ectopic . Left ovary is obscured by bowel gas.
== END | disposition home or self-care (01) ==
LOC: RADUSMAIN 16:33
PROVIDERS: ATTEND Obstetrics & Gynecology
DX: O76 Abnormality in fetal heart rate and rhythm complicating labor and delivery (principal); Z3A.00 Weeks of gestation of pregnancy not specified
CPT/HCPCS: 76801; 76817

== ENCOUNTER → 2019-10-05 | Outpatient (CLI) | payer OTHER | END | disposition home or self-care (01) | LOC: LABMAIN 12:24 | PROVIDERS: ATTEND Obstetrics & Gynecology | DX: Z53.9 Procedure and treatment not carried out, unspecified reason (principal) ==

== ENCOUNTER → 2020-06-16 | Outpatient (CLI) | payer OTHER ==
--- NOTE | 2020-06-16 19:41 | PN ---
PROGRESS NOTE This is a 25-year-old female patient coming in for an annual check regarding obstructive sleep apnea. She is known to have mild KEVIN with an AHI of 9 and she was treated with a CPAP pressure of 8 cm of water with a C-flex of 3, and she is using the AirFit N20 medium-sized nose mask. Note that the patient has been under a lot of social stressors. She got . She moved in with her family, and with the COVID- pandemic she got furloughed. So did her sister and her in-laws, and ultimately her living situation was not acceptable and she moved in with a friend. Currently she is living with a friend in an apartment and she is doing much better. She is willing to go back to using her CPAP unit. Note that the patient has not been very compliant; I checked the compliance data over the past 365 days, and she has used the machine only 45 days out of the past one year. She averages around 8.2 hours of CPAP use per night with a leak of 24 L/minute and her AHI is down to 0.4. She has not gained a significant amount of weight. She is currently weighing around 227 pounds, which is slightly above her baseline. No new complaints otherwise for now. No cardiovascular disease. No angina. No palpitations. No nighttime heartburn, chest pain or shortness of breath. Her health has been essentially stable. PHYSICAL EXAMINATION: BP is 123/83, pulse 94, respirations 16, temperature 98.3, saturation 96% on room air. Weight is 227, height is 5 feet 3 inches, BMI 40.2. [place] score is 12. GENERAL APPEARANCE: Calm, comfortable. HEAD: Atraumatic, normocephalic. NECK: Supple. No JVD. No goiter or neck masses. Mallampati class IV. LUNGS: Diminished breath sounds bilaterally along with scattered expiratory wheezing throughout the lung scott. HEART: Heart sounds are regular rate and rhythm. Normal S1, S2. No S3, S4. No murmurs. ABDOMEN: Soft, nontender. No organomegaly. EXTREMITIES: No edema. No cyanosis or clubbing. NEUROLOGIC: Awake and alert. There is no focal neurological deficit. IMPRESSION: 1. Symptomatic obstructive sleep apnea, mild, with an AHI of 9, currently on CPAP at a pressure of 8 cm of water. Compliance has been poor due to social reasons as discussed above, and the patient has become much more symptomatic and she is willing to undertake treatment more seriously. 2. Obesity with a BMI of 40.2. 3. Chronic hypersomnia. 4. Loud snoring. PLAN: 1. Restart CPAP therapy at a pressure of 8 cm of water with an EPR of 3 and humidity level of 3. 2. Refill her supplies, including AirFit N20 medium-sized nose piece. 3. Offer the patient a [employer]. 4. Encourage weight loss. 5. Implement good sleep hygiene measures. The patient will be asked to sleep a good 7- 8 hours per night. 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 Otherwise, no other major medical problems or comorbidities. I will see her back in a year's time in followup. MMODL / IJN: [id number] /
== END | disposition home or self-care (01) ==
LOC: SLEEP 14:17
PROVIDERS: ATTEND Internal Medicine Critical Care Medicine
DX: G47.33 Obstructive sleep apnea (adult) (pediatric) (principal); G47.10 Hypersomnia, unspecified; E66.9 Obesity, unspecified; Z68.41 Body mass index [BMI] 40.0-44.9, adult; Z99.89 Dependence on other enabling machines and devices